=== PATIENT | female | born 1970 | race Caucasian/White ===

== ENCOUNTER 2018-06-24 08:31 | Emergency (ER) | payer OTHER ==
[2018-06-24 08:36] VITALS: BP 137/84; PULSE 105; TEMP 98.3; BMI 30.1
[2018-06-24] MEDS ORDERED: predniSONE 20 MG TABLET (UD) PO ONE (09:01)
[2018-06-24] MEDS ORDERED: KETOROLAC TROMETHAMINE 60 MG/2 ML VIAL IM ONE (09:01)
[2018-06-24] MEDS ORDERED: predniSONE 20 MG TABLET (UD) ONE (09:04)
[2018-06-24] MEDS ORDERED: KETOROLAC TROMETHAMINE 60 MG/2 ML VIAL ONE (09:04)
--- NOTE | 2018-06-24 09:06 | PDOC ---
History of Present Illness - General Chief Complaint: Back Pain Stated Complaint: LOWER BACK PAIN Time Seen by Provider: 06/24/18 08:43 History Source: Patient Exam Limitations: No Limitations - History of Present Illness Initial Comments: 06/24/18 09:03 Valuation of acute on chronic back pain. slipped on ice years ago and sustained an injury to her low back with a herniation to her lumbar spine disc. Ends had multiple issues with same since. Attends pain management and they are aware of her increasing amounts of pain, but have only offered ibuprofen for pain relief. Has appointment with pain management on Thursday .states uses gabapentin, is unable to take any opioids and does not wish. Uses cyclobenzaprine and ibuprofen with minimal resolved. Has seen specialists at [facility] who she states they have told her they would not be able to help due to some insurance restrictions. Severity: reports: moderate Pain Location: reports: back, neck Loss of Consciousness: no loss of consciousness Associated Symptoms (Fall): denies symptoms Past History - Travel Traveled outside of the country in the last 30 days: No Close contact w/someone who was outside of country & ill: No - Past Medical History Allergies/Adverse Reactions: Allergies Allergy/AdvReac Type Severity Reaction Status Date / Time Penicillins Allergy Rash Verified 06/24/18 08:32 Home Medications: Ambulatory Orders Cyclobenzaprine HCl [Flexeril 10 mg] 10 mg PO BID PRN #60 tablet 06/10/18 Gabapentin [Neurontin -] 300 mg PO Q8H #90 capsule 06/10/18 Ibuprofen [Ibu] 600 mg PO QID PRN 06/24/18 Naproxen [Naprosyn -] 500 mg PO BID #30 tablet 06/24/18 predniSONE [Deltasone -] 20 mg PO BID #8 tablet 06/24/18 Asthma: Yes Cancer: No Cardiac Disorders: No CVA: No COPD: No CHF: No Diabetes: No GI Disorders: No Disorders: No HTN: Yes Hypercholesterolemia: No Liver Disease: No Psychiatric Problems: Yes (DEPRESSION, ANXIETY, PANIC ATTACKS) Seizures: No Thyroid Disease: No - Surgical History Cholecystectomy: Yes (2007) Orthopedic Surgery: Yes (knee 2015) - Suicide/Smoking/Psychosocial Hx Smoking History: Unknown if ever smoked Hx Alcohol Use: No Drug/Substance Use Hx: No Substance Use Type: None Hx Substance Use Treatment: No Trauma Specific PMHX - Complaint Specific PMHX Arthritis: Yes Back Injury: Yes (injured 2016) Review of Systems - Review of Systems Able to Perform ROS?: Yes Is the patient limited Azerbaijani proficient: Yes Constitutional: Yes: See HPI. No: Symptoms Reported, Loss of Appetite, Malaise HEENTM: Yes: See HPI. No: Symptoms Reported Respiratory: Yes: See HPI. No: Symptoms reported ABD/GI: Yes: See HPI. No: Symptoms Reported Musculoskeletal: Yes: Symptoms Reported, See HPI, Back Pain *Physical Exam - Vital Signs Last Vital Signs Temp Pulse Resp BP Pulse Ox 98.3 F 105 H 16 137/84 99 06/24/18 08:34 06/24/18 08:34 06/24/18 08:34 06/24/18 08:34 06/24/18 08:34 - Physical Exam General Appearance: Yes: Nourished, Appropriately Dressed, Apparent Distress, Mild Distress, Moderate Distress HEENT: positive: JAYCE, Normal ENT Inspection, TMs Normal, Pharynx Normal Neck: positive: Supple. negative: Tender Respiratory/Chest: positive: Lungs Clear Musculoskeletal: positive: Normal Inspection, Decreased Range of Motion ( stiffness and limited range of motion, without true tenderness to cervical thoracic or lumbar spine process. Crepitus or step-offs. Has no true palpable spasm however has very tight musculature to the paravertebral spinous muscles lumbar spine. Worse on the left than the right). 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, Fully Oriented, Alert, Normal Mood/ Affect, Normal Response, Motor Strength 5/5 Moderate Sedation - Procedure Monitoring Vital Signs: Procedure Monitoring Vital Signs Temperature 98.3 F 06/24/18 08:34 Pulse Rate 105 H 06/24/18 08:34 Respiratory Rate 16 06/24/18 08:34 Blood Pressure 137/84 06/24/18 08:34 O2 Sat by Pulse Oximetry (%) 99 06/24/18 08:34 Progress Note - Progress Note Progress Note: Acute on chronic back pain, will treat with continued anti-inflammatories including her 600 mg ibuprofen, antispasmodic which she is using cyclobenzaprine and add a steroid for anti-inflammatory purpose. Patient has appointments to see her private physicians this week for further intervention *DC/Admit/Observation/Transfer Diagnosis at time of Disposition: Chronic lower back pain Qualifiers: Back pain laterality: unspecified Sciatica presence: without sciatica Qualified Code(s): M54.5 - Low back pain; G89.29 - Other chronic pain - Discharge Dispostion Disposition: HOME Condition at time of disposition: Stable Decision to Admit order: No - Referrals Referrals: Amy Carlson [Primary Care Provider] - - Patient Instructions Printed Discharge Instructions: DI for Back Strain or Sprain Additional Instructions: Rest, no heavy lifting or exercise until pain is resolved Hot soaks to neck and low back as often as possible/hot showers or Jacuzzis No massage or therapy until spasm is gone Continue Naprosyn 500 mg tablet, 1 tablet every 8 hours for the next 3 days then as needed for pain and swelling Cyclobenzaprine 1-10mg every 8 hours as needed for spasm Prednisone 40 mg daily for the next 5 days If not significant improvement within 24 hours with medication and rest regime, followup with private physician for change in medications and /or therapy. - Post Discharge Activity Forms/Work/School Notes: Back to Work
== END 2018-06-24 09:31 | disposition home or self-care (01) ==
LOC: JERFT 08:31
PROC: 3E0233Z Introduction of Anti-inflammatory into Muscle, Percutaneous Approach (ICD-10-PCS; principal; 2018-06-24)
DX: M54.5 Low back pain (principal); G89.29 Other chronic pain; V00-Y99 External causes of morbidity; Z86.59 Personal history of other mental and behavioral disorders
CPT/HCPCS: 99281-25

== ENCOUNTER 2019-03-25 11:04 | Emergency (ER) | payer OTHER ==
[2019-03-25 11:23] VITALS: BP 165/98; PULSE 89; TEMP 98.6; BMI 28.7
--- NOTE | 2019-03-25 11:23 | PDOC ---
Rapid Medical Evaluation Medical Evaluation: Allergies Allergy/AdvReac Type Severity Reaction Status Date / Time Penicillins Allergy Rash Verified 06/24/18 08:32 I have performed a brief in-person evaluation of this patient. The patient presents with a chief complaint of: c/o R sided pelvic pain since yesterday; denies n/v/d, urinary symptoms; hx of cholecystectomy, Pertinent physical exam findings: In NAD, pelvic deferred, abdomen soft, NT I have ordered the following: Labs The patient will proceed to the ED for further evaluation. 03/25/19 11:21
[2019-03-25 12:17] LABS: BASO % 0.8 % (0-2.0); HEMATOCRIT 39.6 % (32.4-45.2); HEMOGLOBIN 12.8 GM/dL (10.7-15.3); LYMPH % 26.2 % (8-40); MCH 28.4 pg (25.7-33.7); MCHC 32.3 g/dl (32.0-36.0); MEAN CELL VOLUME 87.8 fl (80-96); MEAN PLT VOLUME 8.7 fl (7.5-11.1); MONO % 7.9 % (3.8-10.2); NEUT % 64.1 % (42.8-82.8); PLATELET COUNT 300 K/MM3 (134-434); RBC 4.51 M/mm3 (3.60-5.2); RDW 14.1 % (11.6-15.6); URINE APPEARANCE CLEAR; URINE BILIRUBIN NEGATIVE (NEGATIVE); URINE COLOR YELLOW; URINE GLUCOSE (UA) NEGATIVE (NEGATIVE); URINE KETONE NEGATIVE (NEGATIVE); URINE LEUK ESTERASE NEGATIVE (NEGATIVE); URINE NITRITE NEGATIVE (NEGATIVE); URINE PROTEIN NEGATIVE (NEGATIVE); URINE UROBILINOGEN 0.2 mg/dL (0.2-1.0); WHITE BLOOD COUNT 9.1 K/mm3 (4.0-10.0)
[2019-03-25] MEDS ORDERED: KETOROLAC TROMETHAMINE 60 MG/2 ML VIAL IM ONE (12:36)
--- NOTE | 2019-03-25 12:44 | PDOC ---
History of Present Illness - General Chief Complaint: Pain Stated Complaint: PELVIC PAIN Time Seen by Provider: 03/25/19 11:20 History Source: Patient Exam Limitations: Clinical Condition - History of Present Illness Initial Comments: 03/25/19 12:39 Patient with no significant past medical history presented with complaint of right pelvic pain since yesterday which has been persistent. Patient reported pain is localized to the right pelvic area. Denies urinary frequency, dysuria, burning with urination, nausea or vomiting. Denies abdominal pain, fever or chills. LMP March 09. Patient did not take anything for pain. Denies vaginal bleeding, vaginal discharge. Reported history of cholecystectomy 8 years ago and 4 years ago Is this a multiple visit Asthma Patient?: No Timing/Duration: 24 hours Past History - Past Medical History Allergies/Adverse Reactions: Allergies Allergy/AdvReac Type Severity Reaction Status Date / Time Penicillins Allergy Rash Verified 03/25/19 11:24 Home Medications: Ambulatory Orders Ibuprofen 800 mg PO Q8H PRN #20 tablet 03/25/19 Asthma: Yes Cancer: No Cardiac Disorders: No CVA: No COPD: No CHF: No Diabetes: No GI Disorders: No Disorders: No HTN: Yes Hypercholesterolemia: No Liver Disease: No Psychiatric Problems: Yes (DEPRESSION, ANXIETY, PANIC ATTACKS) Seizures: No Thyroid Disease: No - Surgical History Cholecystectomy: Yes (2007) Orthopedic Surgery: Yes (knee 2016) - Reproductive History Is Patient Now?: No - Psycho Social/Smoking Cessation Hx Smoking History: Never smoked Hx Alcohol Use: No Drug/Substance Use Hx: No Substance Use Type: None Hx Substance Use Treatment: No Review of Systems - Review of Systems Able to Perform ROS?: Yes Is the patient limited Latvian proficient: No Constitutional: No: Chills, Fever, Malaise HEENTM: No: Symptoms Reported Respiratory: No: Symptoms reported Cardiac (ROS): No: Symptoms Reported ABD/GI: Yes: Symptoms Reported, See HPI, Abdominal cramping (right pelvic pain) . No: Abdominal Distended, Abd. Pain w/ defecation, Blood Streaked Bowels, Constipated, Diarrhea, Difficulty Swallowing, Nausea, Poor Appetite, Poor Fluid Intake, Rectal Bleeding, Vomiting, Indigestion, Tarry Stools, Other : Yes: See HPI, Pain (right pelvic pain). No: Symptoms Reported, Burning, Dysuria, Discharge, Frequency, Flank Pain, Hematuria, Incontinence, Urgency Musculoskeletal: No: Symptoms Reported Integumentary: No: Symptoms Reported Neurological: No: Symptoms reported, Dizziness All Other Systems: Reviewed and Negative *Physical Exam - Vital Signs Last Vital Signs Temp Pulse Resp BP Pulse Ox 98.6 F 89 18 165/98 99 03/25/19 11:21 03/25/19 11:21 03/25/19 11:21 03/25/19 11:21 03/25/19 11:21 - Physical Exam General Appearance: Yes: Nourished, Appropriately Dressed, Apparent Distress, Mild Distress HEENT: positive: Normal ENT Inspection Neck: positive: Supple Respiratory/Chest: positive: Lungs Clear, Normal Breath Sounds. negative: Respiratory Distress, Accessory Muscle Use Cardiovascular: positive: Regular Rhythm, Regular Rate Female Pelvic Exam: positive: normal external exam, cervical os closed, normal adnexa, other (mild right pelvic tenderness). negative: CMT, discharge, adnexal tenderness, vaginal bleeding Gastrointestinal/Abdominal: positive: Normal Bowel Sounds, Tender (right pelvic / lower abdominal tendernes). negative: Organomegaly, Increased Bowel Sounds, Decreased BS, Distended, Guarding, Rebound, Hernia, Hepatomegaly, Spleenomegaly Extremity: positive: Normal Inspection Integumentary: positive: Normal Color Neurologic: positive: Fully Oriented, Alert, Normal Mood/Affect, Normal Response ED Treatment Course - LABORATORY CBC & Chemistry Diagram: 03/25/19 11:56 03/25/19 11:56 - ADDITIONAL ORDERS Additional order review: Laboratory Results 03/25/19 03/25/19 11:56 11:56 Urine Color Yellow Urine Appearance Clear Urine pH 5.0 Ur Specific [place]ade[place] 1.007 L Urine Protein Negative Urine Glucose (UA) Negative Urine Ketones Negative Urine Blood Negative Urine Nitrite Negative Urine Bilirubin Negative Urine Urobilinogen 0.2 Ur Leukocyte Esterase Negative Urine HCG, Qual Negative 03/25/19 11:56 RBC 4.51 MCV 87.8 MCHC 32.3 RDW 14.1 MPV 8.7 D Neutrophils % 64.1 Lymphocytes % 26.2 Monocytes % 7.9 Eosinophils % 1.0 Basophils % 0.8 - RADIOLOGY Radiology Studies Ordered: Category Date Time Status TRANSVAGINAL ULTRASOUND US [US] Stat Ultrasound 03/25/19 11:59 Ordered Medical Decision Making - Medical Decision Making 03/25/19 12:42 Patient with no significant past medical history presented with complaint of right pelvic pain since yesterday which has been persistent. Patient reported pain is localized to the right pelvic area. Denies urinary frequency, dysuria, burning with urination, nausea or vomiting. Denies abdominal pain, fever or chills. LMP March 09. Patient did not take anything for pain. Denies vaginal bleeding, vaginal discharge. Reported history of cholecystectomy 8 years ago and 4 years ago Exam significant for mild tenderness to right pelvic area without guarding or rebound. No vaginal discharge or bleeding. No CMT. Patient symptoms likely ovarian cyst versus muscle pain versus less likely torsion. CBC, CMP labs ordered, UA and urine culture labs ordered. Transvaginal ultrasound ordered to rule out acute pelvic pathology. Toradol 60 mg IM ordered for pain 03/25/19 13:33 CBC and chemistry lab unremarkable. Urinalysis within normal limits. Urine hCG negative. Patient pending ultrasound reading 03/25/19 14:02 Pelvic ultrasound shows small ovarian cyst with uterine fibroids otherwise unremarkable ultrasound. Patient report improved pain after Toradol. Patient symptoms likely pain from cyst. 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 Your labs was normal. Take prescribed medication as needed for pain. Follow- up with your ELECTRICAL LOGGING ENGINEER - Post Discharge Activity
[2019-03-25 12:48] LABS: BILIRUBIN,TOTAL 0.3 mg/dL (0.2-1); BLOOD UREA NITROGEN 14.2 mg/dL (7-18); CALCIUM 9.3 mg/dL (8.5-10.1); CREATININE 0.7 mg/dL (0.55-1.3); POTASSIUM 4.2 mmol/L (3.5-5.1); TOT PROT 7.4 g/dl (6.4-8.2)
[2019-03-25] MEDS ORDERED: KETOROLAC TROMETHAMINE 60 MG/2 ML VIAL ONE (12:58)
== END 2019-03-25 14:09 | disposition home or self-care (01) ==
LOC: JER 11:04
PROC: 3E0233Z Introduction of Anti-inflammatory into Muscle, Percutaneous Approach (ICD-10-PCS; principal; 2019-03-25)
DX: R10.2 Pelvic and perineal pain (principal); I10 Essential (primary) hypertension; F32.9 Major depressive disorder, single episode, unspecified; F41.9 Anxiety disorder, unspecified; F41.0 Panic disorder [episodic paroxysmal anxiety]; Z87.09 Personal history of other diseases of the respiratory system; Z88.0 Allergy status to penicillin; Z90.49 Acquired absence of other specified parts of digestive tract
CPT/HCPCS: 36415; 76830-TC; 80053; 81003; 84703; 85025; 96372; 99283-25

== ENCOUNTER 2019-04-30 18:25 | Emergency (ER) | payer OTHER ==
[2019-04-30 18:29] VITALS: BP 142/63; PULSE 78; TEMP 98.5; BMI 28.7
[2019-04-30] MEDS ORDERED: ALBUTEROL SO4 2.5/IPRATROPIUM 0.5 INH SOL 3 ML VIAL.NEB. NEB ONE ×2 (18:38→18:39)
[2019-04-30] MEDS ORDERED: predniSONE 20 MG TABLET (UD) PO ONE (18:38)
[2019-04-30] MEDS ORDERED: predniSONE 20 MG TABLET (UD) ONE (18:40)
--- NOTE | 2019-04-30 18:41 | PDOC ---
History of Present Illness - General Chief Complaint: Asthma Stated Complaint: DIFFICULTY BREATHING Time Seen by Provider: 04/30/19 18:36 History Source: Patient Exam Limitations: No Limitations - History of Present Illness Is this a multiple visit Asthma Patient?: No Associated Symptoms: reports: cough, wheezing. denies: dizziness, facial pain, fever/chills, muscle aches, nasal congestion, nasal drainage, shortness of breath, sinus infection Past History - Travel Traveled outside of the country in the last 30 days: No Close contact w/someone who was outside of country & ill: No - Past Medical History Allergies/Adverse Reactions: Allergies Allergy/AdvReac Type Severity Reaction Status Date / Time Penicillins Allergy Rash Verified 04/30/19 18:29 Home Medications: Ambulatory Orders Ibuprofen 800 mg PO Q8H PRN #20 tablet 03/25/19 Benzonatate [Tessalon Pearls -] 100 mg PO TID #21 capsule 04/30/19 predniSONE [Deltasone -] 40 mg PO DAILY 4 Days #8 tablet 04/30/19 Asthma: Yes Cancer: No Cardiac Disorders: No CVA: No COPD: No CHF: No Diabetes: No GI Disorders: No Disorders: No HTN: Yes Hypercholesterolemia: No Liver Disease: No Psychiatric Problems: Yes (DEPRESSION, ANXIETY, PANIC ATTACKS) Seizures: No Thyroid Disease: No - Surgical History Cholecystectomy: Yes (2007) Orthopedic Surgery: Yes (knee 2015) - Psycho Social/Smoking Cessation Hx Smoking History: Never smoked Hx Alcohol Use: No Drug/Substance Use Hx: No Substance Use Type: None Hx Substance Use Treatment: No Respiratory Specific PMHX - Complaint Specific PMHX Hx Airway Support: No Hx Bronchitis: Yes Hx Pneumonia: No Hx Pulmonary Embolus: No Hx TB (Tuberculosis): No Review of Systems - Review of Systems Able to Perform ROS?: Yes Is the patient limited Hungarian proficient: No Constitutional: No: Chills, Fever Respiratory: Yes: Cough, Shortness of Breath, Wheezing, Productive cough. 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 She is a non-smoker presents with intermittent cough, chest pressure and wheezing for 2 weeks. Patient reports that she has been getting nebulizing using an inhaler with no relief. She was seen by her primary care doctor who encouraged her to continue her inhalers, she was also given prescription for cough medication and she recently completed a Z-Tan last week.. She has not had a prednisone course since this exacerbation. On exam there is no wheezing noted with patient reports she is experiencing chest tightness. Vital signs are stable in the emergency room. We will try DuoNeb and prednisone pt reassessed after nebs, Will start a short course of prednisone Discharge - Discharge Information Problems reviewed: Yes Clinical Impression/Diagnosis: Asthma exacerbation Qualifiers: Asthma severity: mild Asthma persistence: unspecified Qualified Code(s): J45.901 - Unspecified asthma with (acute) exacerbation Condition: Stable Disposition: HOME - Admission No - Additional Discharge Information Prescriptions: Benzonatate [Tessalon Pearls -] 100 mg PO TID #21 capsule predniSONE [Deltasone -] 40 mg PO DAILY 4 Days #8 tablet Prescription Drug Monitoring Program (I-STOP) results: I-STOP not reviewed - Follow up/Referral Referrals: Amy Carlson [Primary Care Provider] - - Patient Discharge Instructions Patient Printed Discharge Instructions: Asthma -- Adult - Post Discharge Activity
== END 2019-04-30 19:31 | disposition home or self-care (01) ==
LOC: JERFT 18:25
PROC: 3E0F7GC Introduction of Other Therapeutic Substance into Respiratory Tract, Via Natural or Artificial Opening (ICD-10-PCS; principal; 2019-04-30)
DX: J45.901 Unspecified asthma with (acute) exacerbation (principal); I10 Essential (primary) hypertension; F41.8 Other specified anxiety disorders; F32.9 Major depressive disorder, single episode, unspecified; F41.0 Panic disorder [episodic paroxysmal anxiety]; Z90.49 Acquired absence of other specified parts of digestive tract
CPT/HCPCS: 94640; 99281-25

== ENCOUNTER 2020-07-30 00:34 | Emergency (ER) | payer OTHER ==
[2020-07-30 01:00] VITALS: TEMP 98.5; BMI 26.5
[2020-07-30] MEDS ORDERED: FAMOTIDINE 20 MG/50 ML IVPB 20 MG/50 ML MG IVPB ONE ×2 (01:40→01:55)
[2020-07-30] MEDS ORDERED: SODIUM CHLORIDE 0.9% 500 ML INFUS.BAG IV ONE (01:40)
[2020-07-30] MEDS ORDERED: ONDANSETRON 4 MG/2 ML VIAL IVPUSH ONE (01:40)
[2020-07-30] MEDS ORDERED: ACETAMINOPHEN 325 MG TABLET (FP) PO ONE (01:40)
[2020-07-30] MEDS ORDERED: MAG HYDROX/AL HYDROX/SIMETH 30 ML UNIT-DOSE CUP PO ONE (01:40)
[2020-07-30] MEDS ORDERED: LIDOCAINE VISCOUS 2% ORAL/TOP 20 ML UNIT-DOSE CUP MM ONE (01:40)
[2020-07-30] MEDS ORDERED: LIDOCAINE VISCOUS 2% ORAL/TOP 20 ML UNIT-DOSE CUP ONE (01:54)
[2020-07-30] MEDS ORDERED: ACETAMINOPHEN 325 MG TABLET (FP) ONE (01:54)
[2020-07-30] MEDS ORDERED: ONDANSETRON 4 MG/2 ML VIAL ONE (01:55)
[2020-07-30] MEDS ORDERED: MAG HYDROX/AL HYDROX/SIMETH 30 ML UNIT-DOSE CUP ONE (01:55)
[2020-07-30 02:28] LABS: BASO % 0.2 % (0-2.0); HEMATOCRIT 41.2 % (32.4-45.2); HEMOGLOBIN 13.6 GM/dL (10.7-15.3); LYMPH % 3.5 % (8-40); MCH 29.9 pg (25.7-33.7); MEAN CELL VOLUME 90.5 fl (80-96); MEAN PLT VOLUME 9.8 fl (7.5-11.1); NEUT % 92.3 % (42.8-82.8); PLATELET COUNT 289 K/MM3 (134-434); RBC 4.55 M/mm3 (3.60-5.2); WHITE BLOOD COUNT 23.8 K/mm3 (4.0-10.0)
[2020-07-30 02:40] LABS: POTASSIUM 4.5 mmol/L (3.5-5.1)
[2020-07-30 02:43] LABS: ALBUMIN 3.9 g/dl (3.4-5.0); BLOOD UREA NITROGEN 22.8 mg/dL (7-18); CALCIUM 9.9 mg/dL (8.5-10.1)
[2020-07-30 02:46] LABS: CREATININE 0.7 mg/dL (0.55-1.3)
[2020-07-30 02:48] LABS: BILIRUBIN,TOTAL 0.4 mg/dL (0.2-1); TOT PROT 7.1 g/dl (6.4-8.2)
[2020-07-30 03:21] LABS: PH,URINE 6.5 (5.0-8.0); URINE APPEARANCE CLEAR; URINE BILIRUBIN NEGATIVE (NEGATIVE); URINE COLOR YELLOW; URINE GLUCOSE (UA) NEGATIVE (NEGATIVE); URINE KETONE TRACE (NEGATIVE); URINE LEUK ESTERASE NEGATIVE (NEGATIVE); URINE NITRITE NEGATIVE (NEGATIVE); URINE PROTEIN NEGATIVE (NEGATIVE); URINE UROBILINOGEN 0.2 mg/dL (0.2-1.0)
[2020-07-30 03:28] LABS: HCG,QUALITATIVE URINE Negative
[2020-07-30 05:13] VITALS: BP 120/78; PULSE 76
== END 2020-07-30 05:13 | disposition home or self-care (01) ==
LOC: JER 00:34
PROC: 3E033GC Introduction of Other Therapeutic Substance into Peripheral Vein, Percutaneous Approach (ICD-10-PCS; principal; 2020-07-30)
PROC: 3E033GC Introduction of Other Therapeutic Substance into Peripheral Vein, Percutaneous Approach (ICD-10-PCS; 2020-07-30)
DX: K51.919 Ulcerative colitis, unspecified with unspecified complications (principal)
CPT/HCPCS: 36415; 74177-TC; 80053; 81003; 82272; 83690; 84703; 85025; 87086; 96374; 96375; 99285-25

== ENCOUNTER 2020-11-26 07:15 | Emergency (ER) | payer OTHER ==
[2020-11-26 07:26] VITALS: BP 148/83; PULSE 93; TEMP 98.1; BMI 25.4
[2020-11-26] MEDS ORDERED: LIDOCAINE 5% TOPICAL PATCH TP ONE (07:50)
[2020-11-26] MEDS ORDERED: LIDOCAINE 5% TOPICAL PATCH ONE (07:52)
[2020-11-26] MEDS ORDERED: METHOCARBAMOL 500 MG TABLET PO ONE (08:22)
[2020-11-26] MEDS ORDERED: ACETAMINOPHEN 325 MG TABLET (FP) PO ONE (08:22)
[2020-11-26] MEDS ORDERED: ACETAMINOPHEN 325 MG TABLET (FP) ONE (08:28)
[2020-11-26] MEDS ORDERED: METHOCARBAMOL 500 MG TABLET ONE (08:29)
[2020-11-26] MEDS ORDERED: KETOROLAC TROMETHAMINE 15 MG/ML VIAL IM ONE (09:32)
[2020-11-26] MEDS ORDERED: KETOROLAC TROMETHAMINE 30 MG/1 ML VIAL ONE (10:08)
[2020-11-26] MEDS ORDERED: LIDOCAINE PATCH REMOVAL MC ONE (22:00)
== END 2020-11-26 10:40 | disposition home or self-care (01) ==
LOC: JER 07:15
PROC: 3E0233Z Introduction of Anti-inflammatory into Muscle, Percutaneous Approach (ICD-10-PCS; principal; 2020-11-26)
DX: M25.551 Pain in right hip (principal); M54.41 Lumbago with sciatica, right side
CPT/HCPCS: 73502-TC-RT-FY; 99284-25

== ENCOUNTER 2020-12-10 08:39 | Emergency (ER) | payer OTHER ==
[2020-12-10 08:51] VITALS: BP 156/80; PULSE 97; TEMP 97.9; BMI 25.4
[2020-12-10] MEDS ORDERED: diazePAM 5 MG TABLET PO ONE (09:36)
[2020-12-10] MEDS ORDERED: KETOROLAC TROMETHAMINE 60 MG/2 ML VIAL IM ONE (09:36)
[2020-12-10] MEDS ORDERED: LIDOCAINE 5% TOPICAL PATCH TP ONE (09:37)
[2020-12-10] MEDS ORDERED: oxyCODONE HCL 5 MG TABLET PO ONE (09:39)
[2020-12-10] MEDS ORDERED: LIDOCAINE 5% TOPICAL PATCH ONE (09:43)
[2020-12-10] MEDS ORDERED: oxyCODONE HCL 5 MG TABLET ONE (09:44)
[2020-12-10] MEDS ORDERED: KETOROLAC TROMETHAMINE 30 MG/1 ML VIAL ONE (09:45)
[2020-12-10] MEDS ORDERED: diazePAM 5 MG TABLET ONE (09:45)
[2020-12-10] MEDS ORDERED: FAMOTIDINE 20 MG TABLET PO ONE (09:46)
[2020-12-10] MEDS ORDERED: FAMOTIDINE 20 MG TABLET ONE (09:46)
== END 2020-12-10 11:16 | disposition home or self-care (01) ==
LOC: JERFT 08:39 → JER 08:39 → JERFT 11:16
PROC: 3E0233Z Introduction of Anti-inflammatory into Muscle, Percutaneous Approach (ICD-10-PCS; principal; 2020-12-10)
DX: M54.41 Lumbago with sciatica, right side (principal)
CPT/HCPCS: 99284-25